=== PATIENT | female | born 1955 | race Caucasian/White ===

== ENCOUNTER → 2017-01-21 | Outpatient (CLI) | payer OTHER ==
[~2017-01-21] MED LIST: CLAR1TAB2 PO; DRIS50002 PO; RISE1TAB PO; SYNT75TA PO
--- NOTE | 2017-01-21 10:29 | REP ---
RIGHT FOOT, FOUR VIEWS: HISTORY: Injury. There is no acute fracture or dislocation. The joint spaces are normal in appearance. IMPRESSION: There is no acute fracture or dislocation. Signed by Jay Correia MD 01/21/2017 10:30 A
== END ==
LOC: M WUC 10:01
PROVIDERS: ATTEND Physician Assistant
DX: M79.671 Pain in right foot (principal)

== ENCOUNTER 2018-01-06 02:15 | Emergency (ER) | payer BC, OTHER ==
[2018-01-06] MEDS: TETRACAINE 0.5% OPHTH SOLN 4ML OU (04:00)
[2018-01-06] MEDS: NAPHCON-A OPHTH SOLN 15 ML OS (04:15)
== END 2018-01-06 04:42 | disposition home or self-care (01) ==
LOC: M ED 02:15
DX: H11.30 Conjunctival hemorrhage, unspecified eye (principal); E03.9 Hypothyroidism, unspecified; M81.0 Age-related osteoporosis without current pathological fracture; Z88.8 Allergy status to other drugs, medicaments and biological substances; Z79.890 Hormone replacement therapy; Z79.899 Other long term (current) drug therapy
CPT/HCPCS: 99283

== ENCOUNTER → 2020-04-06 | Outpatient (CLI) | payer MEDICARE ==
[~2020-04-06] MED LIST changes: -DRIS50002 PO; +DRIS50003 PO; +RISE150T PO; -RISE1TAB PO
--- NOTE | 2020-04-06 11:32 | REP ---
INDICATION: STRAIN COMPARISON: None. TECHNIQUE: Internal rotation, external rotation, and Y view. FINDINGS: No acute fracture or dislocation. The acromioclavicular and glenohumeral joints are intact and age-appropriate. No periarticular calcifications or overt degenerative changes are appreciated. Sub acromial space is normal. Surrounding soft tissues are unremarkable. IMPRESSION: Normal age-appropriate right shoulder radiographs. <Electronically signed by Omid Zacarias > 04/06/20 [id number]
== END ==
LOC: M WUC 11:10
PROVIDERS: ATTEND Physician Assistant
DX: S46.811A Strain of other muscles, fascia and tendons at shoulder and upper arm level, right arm, initial encounter (principal); Y92.9 Unspecified place or not applicable; Y93.9 Activity, unspecified; Y99.9 Unspecified external cause status

== ENCOUNTER → 2020-04-22 | Outpatient (CLI) | payer MEDICARE ==
[2020-04-22 15:04] LABS: C REACTIVE PROTEIN QUANTITATIV < 0.30 MG/DL (0.00-0.30); RHEUMATOID FACTOR QUANT < 10.0 IU/ML (<15.0)
== END ==
LOC: M LAB 14:07
PROVIDERS: ATTEND Physician Assistant
DX: M50.30 Other cervical disc degeneration, unspecified cervical region (principal)

== ENCOUNTER → 2021-02-08 | Outpatient (CLI) | payer MEDICARE | LOC: M WHC 09:00 | PROVIDERS: ATTEND Obstetrics & Gynecology | DX: Z12.31 Encounter for screening mammogram for malignant neoplasm of breast (principal); Z13.820 Encounter for screening for osteoporosis; M85.88 Other specified disorders of bone density and structure, other site; M85.851 Other specified disorders of bone density and structure, right thigh; M85.852 Other specified disorders of bone density and structure, left thigh ==

== ENCOUNTER → 2022-02-08 | Outpatient (CLI) | payer MEDICARE | LOC: M WHC 08:17 | PROVIDERS: ATTEND Obstetrics & Gynecology | DX: R92.2 Inconclusive mammogram (principal) ==

== ENCOUNTER → 2022-02-14 | Outpatient (CLI) | payer MEDICARE | LOC: M WHC 13:20 | PROVIDERS: ATTEND Obstetrics & Gynecology | DX: R92.8 Other abnormal and inconclusive findings on diagnostic imaging of breast (principal); N63.15 Unspecified lump in the right breast, overlapping quadrants | CPT/HCPCS: 76642; 77065; G0279 ==

== ENCOUNTER → 2023-02-16 | Outpatient (CLI) | payer MEDICARE | LOC: M WHC 12:21 | PROVIDERS: ATTEND Obstetrics & Gynecology | DX: Z12.31 Encounter for screening mammogram for malignant neoplasm of breast (principal); Z13.820 Encounter for screening for osteoporosis ==

== ENCOUNTER → 2024-02-19 | Outpatient (CLI) | payer MEDICARE | LOC: M WHC 11:12 | PROVIDERS: ATTEND Obstetrics & Gynecology | DX: Z12.31 Encounter for screening mammogram for malignant neoplasm of breast (principal) ==

== ENCOUNTER 2024-05-17 09:26 | Emergency (ER) | payer MEDICARE ==
[~2024-05-17] VITALS: Ht 157.5 cm; Wt 45.5 kg
[2024-05-17] MEDS ORDERED: SYNT50TA PO (13:24)
[2024-05-17 13:56] VITALS: BP 163/70; TEMP 97.4; O2SAT 100
== END 2024-05-17 14:09 | disposition home or self-care (01) ==
LOC: M ED 09:26
DX: S09.90XA Unspecified injury of head, initial encounter (principal); W01.198A Fall on same level from slipping, tripping and stumbling with subsequent striking against other object, initial encounter; E03.9 Hypothyroidism, unspecified; M81.0 Age-related osteoporosis without current pathological fracture; Y92.014 Private driveway to single-family (private) house as the place of occurrence of the external cause; Y93.89 Activity, other specified; Y99.9 Unspecified external cause status; Z88.8 Allergy status to other drugs, medicaments and biological substances; Z79.899 Other long term (current) drug therapy

== ENCOUNTER → 2025-02-19 | Outpatient (CLI) | payer MEDICARE ==
[~2025-02-19] MED LIST changes: +SYNT50TA PO
== END ==
LOC: M WHC 09:01
PROVIDERS: ATTEND Obstetrics & Gynecology
DX: Z12.31 Encounter for screening mammogram for malignant neoplasm of breast (principal); Z13.820 Encounter for screening for osteoporosis; R92.333 Mammographic heterogeneous density, bilateral breasts; M85.89 Other specified disorders of bone density and structure, multiple sites